=== PATIENT | female | born 1955 | race Caucasian/White ===

== ENCOUNTER → 2017-01-24 | Outpatient (CLI) | payer OTHER ==
[~2017-01-24] MED LIST: ALLERGY RELIEF10 M2 PO; ASPIRIN81 M2 PO; BAYER CHEWABLE81 MG PO; CORAL CALCIUM1000 MG PO; FISH OIL 1,2001 EAC1 PO; FISH OIL 1,2001 EAC3 PO; FLONASE 0.05% N16 G1; FLONASE ALLERG9.9 ML; FLONASE16 GM; GLUCOSAMINE & C1 CAP PO; HYDROCHLOROTHIA25 MG PO; LISINOPRIL10 MG PO; OMEGA 3 FISH OI1 CAP PO; PANTOPRAZOLE SO40 MG PO; POTASSIUM GLUCO99 MG PO; POTASSIUM99 M1 PO; PRAVACHOL20 MG PO
--- NOTE | ~2017-01-24 | CR229 ---
[facility]. [facility] A Service of [facility] RADIOLOGY TEXT RESULTS PATIENT: MIKAELA ALFORD LOCATION: [facility] : 53 UNIT #: [id number] AGE: [address]: Anabelle Puri SEX: F ORDER DR: [id number] [address] [id number] O MR#: [id number] Acc #: [id number] NAME: MIKAELA ALFORD : 1955 SEX: F STUDY DATE/TIME: 01/24/2017 14:13 UNIT: [facility] ROOM: STUDY DESCRIPTION: CR Shoulder Min 2 View Lt Attending Physician: Anabelle Puri A.P.R.N. Referring Physician: Anabelle Puri A.P.R.N. Ordering Physician: Anabelle Puri A.P.R.N. Primary Care Physician: Anabelle Puri A.P.R.N. MEDICAL IMAGING REPORT This report is preliminary unless electronic signature is present. EXAM Left shoulder 01/24/2017 INDICATION 61-year-old female with shoulder pain that began 2 weeks ago after lifting. Hypertension. Swelling and tingling of the left shoulder for 2 weeks. TECHNIQUE Three views left shoulder. No comparisons. FINDINGS There is mild degenerative change in the glenohumeral joint and AC joint. No acute fracture, shoulder separation or dislocation. Old healed granulomatous disease in the visualized left lung. IMPRESSION Degenerative change in the left shoulder. Otherwise negative. Dictated by... Ben Burroughs M.D. THIS IS AN ELECTRONICALLY VERIFIED REPORT Ben Burroughs M.D. at 01/25/2017 6:06 PM EMMANUEL/jenna TD: 01/25/2017 14:11 JOB #: [id number] MEDICAL IMAGING REPORT Page 1 of 1
== END | disposition home or self-care (01) ==
LOC: SRAD 13:46
DX: M25.512 Pain in left shoulder (principal); M19.012 Primary osteoarthritis, left shoulder
CPT/HCPCS: 73030